=== PATIENT | female | born 1995 | race Caucasian/White ===

== ENCOUNTER → 2018-04-09 14:51 | Outpatient (CLI) | payer OTHER, MEDICAID, SELFPAY ==
--- NOTE | 2018-04-09 | DI.US.S_ITS ---
PROCEDURE: US OB LIMITED INDICATIONS: INTERVAL GROWTH OUTSIDE/PRIOR DATING DATA: Last menstrual period (LMP): 06/07/17. LMP-based estimated date of delivery (PRESTON): 05/12/18. First dating scan (date and location): 04/09/18. Estimated date of delivery (PRESTON) from first dating scan: 05/10/18. TECHNIQUE: Real-time scanning was performed of the fetus, with image documentation. COMPARISON: None. FINDINGS: A single live intrauterine gestation is present. Presentation: Vertex. Placenta: Placental position is posterior/superior, without previa. Amniotic fluid index: 21.5 cm, normal range is 5-24 cm. heart rate: 139 beats per minute. Maternal cervical canal: Not seen. Estimated gestational age from initial scan: N./A. Biometric measurements are as follows: Biparietal diameter: 8.6 cm equals 34 weeks 4 days Head circumference: 32.1 cm equals 36 weeks 1 day Abdominal circumference: 31.6 cm equals 35 weeks 4 days Femur length: 7.1 cm equals 36 weeks 1 day Composite gestational age: 35 weeks 4 days Estimated weight: 2735 g, 59th percentile Given the late stage of gestation, of the anatomy is not well evaluated. However, no gross abnormality is identified Mild maternal hydronephrosis can be seen on the right. IMPRESSION: A single live intrauterine is seen. No significant discrepancy is found between the estimated gestational age based on these images and the estimated gestational age based upon the given date of the last menstrual period. Mild right maternal hydronephrosis can be seen. Dictated by: James Garcia M.D. on 04/09/2018 at 14:55 Approved by: James Garcia M.D. on 04/09/2018 at 14:59
== END ==
PROVIDERS: Visit Provider Midwife
DX: Z36.89 Encounter for other specified antenatal screening (principal)
CPT/HCPCS: 76815